=== PATIENT | male | born 1945 | race Caucasian/White ===

== ENCOUNTER → 2017-02-17 | Day surgery (SDC) | payer MEDICARE ==
[~2017-02-17] MED LIST: ACETAMINOPHEN 1000 MG/100 ML 100 ML IV ONE; AMLO10TA2 PO; HYDR-4107 PO; KETOROLAC TROMETHAMINE 30 MG/ML (IVP) VIAL IV PUSH ONE; LACTATED RINGER'S 1000 ML INJ 1,000 ML ONE; MIDAZOLAM HCL 2 MG/2 ML VIAL ONE; ONDANSETRON HCL 4 MG/2 ML VIAL IV PUSH ONE; PROPOFOL 200 MG/20 ML AMP IV ONE; ceFAZolin INJ 1,000 MG VIAL ONE; ePHEDrine/NS 50 MG/5 ML SYR IV ONE
--- NOTE | 2017-02-17 11:54 | MP ---
cc: WOOD LOPEZ M.D., JOSE R. M.D. DATE OF SURGERY 02/17/2017 PROCEDURE 1. Laparoscopic right inguinal hernia repair with mesh. 2. Primary umbilical hernia repair. PREOPERATIVE DIAGNOSIS 1. Symptomatic reducible right inguinal hernia. 2. Reducible umbilical hernia. POSTOPERATIVE DIAGNOSIS 1. Symptomatic reducible right inguinal hernia. 2. Reducible umbilical hernia. ANESTHESIA General endotracheal SURGEON Wood Lopez MD ESTIMATED BLOOD LOSS 10 mL FLUIDS 1000 mL crystalloid COMPLICATIONS None DRAINS None SPECIMEN None PROCEDURE IN DETAIL The patient was seen in the holding area and the right groin marked by the undersigned and confirmed by the patient. He was taken to the operating room and placed on the operating room table in the supine position. After an adequate level of general anesthetic had been administered, the lower abdomen and groin were shaved, prepped and draped. Time-out was taken confirming the correct patient site and procedure to be performed. Skin and subcutaneous tissue were infiltrated with local anesthetic in the umbilicus and an incision made through the skin. The peritoneal cavity was directly visualized. There was no incarceration or omental tissue adhered to the umbilicus. A 12 mm balloon trocar was inserted and the balloon inflated. The abdomen was insufflated. The patient was placed in Trendelenburg position. A 12-mm trocar was placed in the right lower quadrant and a 5 mm trocar in the left lower quadrant after injection of each site with local anesthetic. Local anesthetic was also injected into the right groin. The peritoneum was then incised and peeled downward on the right side. A window was created behind the spermatic cord structures. Angel's ligament was dissected free from the surrounding structures. Fatty tissue was dissected off of the anterior abdominal wall. A 6 x 6 piece of Ultrapro mesh was brought up and trimmed to size to fit the defect. The mesh was slit longitudinally and inserted into the pelvis. The inferior leaf of the mesh was brought under the spermatic cord structures. The mesh was transfixed to Angel's ligament with 4.0 mm elisabeth. The mesh was then transfixed to the transversalis fascia with 4.8 mm elisabeth. The mesh was reclosed laterally with two 4.8 mm elisabeth and medially with a 4.8 mm staple to create a new internal ring. When this was completed, the defect was tested and the entire defect was seen to be encompassed by at least 4-5 cm of mesh material overlapping the edge of the defect. Insufflation was decreased and the peritoneum was reclosed with 4.8 mm elisabeth. Insufflation was then discontinued and the 12th and 5 mm trocars were removed under direct vision. No bleeding was noted from the trocar sites. The laparoscope and umbilical port were then removed. The fascia was closed in the right lower quadrant with 0 Vicryl suture and the umbilicus was closed with #1 Prolene in an interrupted simple fashion longitudinally. The three trocar sites were closed in the skin with 4-0 Vicryl in an interrupted buried fashion. All sites were dressed with Steri-Strips. The patient was extubated and taken back to the recovery room in stable condition. He tolerated the procedure well. MD SARATH Parrish/[place] /11:32 AM /11:44 AM MTDCarla
== END | disposition home or self-care (01) ==
LOC: ESDC 08:12
PROVIDERS: ATTEND Surgery Trauma Surgery
DX: K40.90 Unilateral inguinal hernia, without obstruction or gangrene, not specified as recurrent (principal); K42.9 Umbilical hernia without obstruction or gangrene
CPT/HCPCS: 00750; 00840; 49585; 49650; C1781; J0131; J0690; J1885; J2250; J2405; J3010; J7120

== ENCOUNTER 2017-02-19 01:49 | Emergency (ER) | payer MEDICARE ==
[~2017-02-19] VITALS: Ht 167.6 cm; Wt 78.1 kg
[2017-02-19 01:50] VITALS: BP 168/93; PULSE 81; RESP 16; TEMP 98.7; O2SAT 96
[2017-02-19] MEDS ORDERED: HYDR-4107 PO (02:00)
[2017-02-19] MEDS ORDERED: AMLO10TA2 PO (02:00)
--- NOTE | 2017-02-19 02:12 | PD ---
HPI Chief Complaint: Complaint Time Seen by Provider: 02:07 Travel History International Travel<30 days: No Contact w/Intl Traveler<30days: No Traveled to known affect area: No History of Present Illness HPI 71-year-old male presents to the emergency department by private transportation the care of his spouse for complaint of difficulty with urination. Patient underwent elective right inguinal herniorrhaphy and umbilical herniorrhaphy today (02/18/17) at [facility]. Patient reports at time of discharge from the outpatient surgical facility he was having difficulty urinating but was able to produce a stream. Patient reports since that time he has frequent attempts at urination but only putting out small amounts. Patient did urinate onto a pad as overflow type urination all he was sleeping and presents now because of ongoing suprapubic distention and pain and inability to urinate. Patient denies fever or chills. Patient's had no nausea or vomiting. No report of flank pain. No penile discharge. No previous issues with urinary retention and no prior urinary catheter. [facility] Past Medical History Narrative Medical Hypertension Inguinal herniorrhaphy umbilical herniorrhaphy; nursing notes reviewed Social History Tobacco Use: No Allergies-Medications (Allergen,Severity, Reaction): Coded Allergies: azithromycin (Verified Allergy, Severe, Fatigue, 02/19/17) Sulfa (Sulfonamide Antibiotics) (Verified Allergy, Unknown, 02/19/17) Reported Meds & Prescriptions Reported Meds & Active Scripts Active Reported Hydrocodone-Acetaminophen 5-300 Mg Tab 1 Tab PO Q6H PRN Amlodipine (Amlodipine Besylate) 10 Mg Tab 10 Mg PO DAILY Review of Systems Except as stated in HPI: all other systems reviewed are Neg General / Constitutional: No: Fever, Chills HENT: No: Congestion Cardiovascular: No: Chest Pain or Discomfort Respiratory: No: Shortness of Breath Gastrointestinal: No: Abdominal Pain Genitourinary: Positive: Decreased Urinary Output, Dribbling, Incontinence Musculoskeletal: No: Myalgias, Arthralgias Skin: No Rash, No Itching Neurologic: No: Weakness, Dizziness, Syncope Psychiatric: No: Anxiety Endocrine: No: Heat Intolerance, Cold Intolerance Hematologic/Lymphatic: No: Easy Bruising Physical Exam Narrative GENERAL: Well-developed well-nourished female in no acute distress no respiratory distress SKIN: Warm and dry. HEAD: Normocephalic. EYES: No scleral icterus. No injection or drainage. NECK: Supple, trachea midline. No JVD or lymphadenopathy. CARDIOVASCULAR: Regular rate and rhythm without murmurs, gallops, or rubs. RESPIRATORY: Breath sounds equal bilaterally. No accessory muscle use. GASTROINTESTINAL: Abdomen soft, mild tenderness to palpation with Steri-Strips in place and no drainage or induration or erythema at the incision sites, noted suprapubic distention. MUSCULOSKELETAL: No cyanosis, or edema. BACK: Nontender without obvious deformity. No CVA tenderness. Data Data Last Documented VS Vital Signs Date Time Temp Pulse Resp B/P (MAP) Pulse Ox O2 Delivery O2 Flow Rate FiO2 02/19/17 02:44 69 18 149/76 (100) 95 Room Air 02/19/17 01:50 98.7 Orders Orders Urinary Catheter Insert/Apply (02/19/17 02:07) Urinalysis - C+S If Indicated (02/19/17 02:07) Lidocaine 2% Jelly (Xylocaine 2% Jelly) (02/19/17 02:15) Bag, Leg 32oz Sterile Large Ea (02/19/17 02:49) Ed Discharge Order (02/19/17 02:49) Labs Laboratory Tests Test 02/19/17 02:35 Urine Color STRAW Urine Turbidity CLEAR Urine pH 7.0 Urine Specific [place] 1.009 Urine Protein NEG mg/dL Urine Glucose (UA) NEG mg/dL Urine Ketones NEG mg/dL Urine Occult Blood MOD Urine Nitrite NEG Urine Bilirubin NEG Urine Leukocyte Esterase NEG Urine RBC 10-14 /hpf Urine WBC 0-2 /hpf Urine Squamous Epithelial Cells 0-5 /hpf Urine Bacteria NONE /hpf Microscopic Urinalysis Comment CULT NOT INDICATED MDM Medical Decision Making Medical Screen Exam Complete: Yes Emergency Medical Condition: Yes Medical Record Reviewed: Yes Interpretation(s) UA: rbc's cx not indicated Differential Diagnosis urinary retention, BPH, adverse anesthetic reaction, UTI Narrative Course Bladder scan 900+ mL volume; urinary catheter insertion ordered; urinalysis request Urinary catheter inserted with good urine output 1 L; catheter is clamped; urinalysis sent for evaluation Patient clinically improved after urinary catheter placement and drainage of retained urine; urinalysis few RBCs but otherwise unremarkable culture is not indicated Diagnosis Primary Impression: Urinary retention Patient Instructions: Narcotic given in the ED, General Instructions Additional Instructions: Increase fluid hydration Continue current medications as presently prescribed Follow-up with your managing provider Return to the emergency department for a concerns or change in condition Disposition: 01 DISCHARGE HOME Condition: Stable Adela Mendez MD Feb 19, 2017 02:12
[2017-02-19] MEDS ORDERED: LIDOCAINE HCL 2% JELLY 5 ML SYRINGE TOPICAL ONE (02:15)
[2017-02-19 02:39] LABS: BLOOD, URINE MOD (NEG); GLUCOSE,URINE NEG (NEG); KETONE, URINE NEG (NEG); NITRITE,URINE NEG (NEG); URINE COLOR STRAW (YELLW/STRAW)
[2017-02-19 02:43] LABS: WBC, URINE 0-2 /hpf (0-5)
[2017-02-19 02:44] VITALS: BP 149/76; PULSE 69; RESP 18; O2SAT 95
[2017-02-19 02:44] LABS: COMMENT (UR) CULT NOT INDICATED; CULTURE IF INDICATED CULT NOT INDICATED; SQUAMOUS EPITHELIAL CELL URINE 0-5 /hpf (0-5)
[2017-02-19 03:19] VITALS: BP 140/74
== END 2017-02-19 03:35 | disposition home or self-care (01) ==
LOC: PHED 01:49
DX: R33.9 Retention of urine, unspecified (principal)
CPT/HCPCS: 51702; 81001

== ENCOUNTER 2017-03-03 16:04 | Emergency (ER) | payer MEDICARE ==
[~2017-03-03] VITALS: Ht 167.6 cm; Wt 72.0 kg
[~2017-03-03 16:04] MED LIST changes: -ACETAMINOPHEN 1000 MG/100 ML 100 ML IV ONE; -KETOROLAC TROMETHAMINE 30 MG/ML (IVP) VIAL IV PUSH ONE; -LACTATED RINGER'S 1000 ML INJ 1,000 ML ONE; -MIDAZOLAM HCL 2 MG/2 ML VIAL ONE; -ONDANSETRON HCL 4 MG/2 ML VIAL IV PUSH ONE; -PROPOFOL 200 MG/20 ML AMP IV ONE; -ceFAZolin INJ 1,000 MG VIAL ONE; -ePHEDrine/NS 50 MG/5 ML SYR IV ONE
[2017-03-03 16:07] VITALS: BP 136/69; PULSE 103; RESP 16; TEMP 98.3; O2SAT 97
--- NOTE | 2017-03-03 16:51 | PD ---
HPI Chief Complaint: Complaint Time Seen by Provider: 16:48 Travel History International Travel<30 days: No Contact w/Intl Traveler<30days: No Traveled to known affect area: No History of Present Illness HPI 71-year-old male complains of urinary retention and bladder spasm. Patient status post right inguinal hernia surgery and umbilical hernia surgery on February 18, 2017. Patient developed urinary retention subsequently. Patient was seen in emergency room and Valdez catheter was inserted. Patient produced 1000 cc of urine at that time. UA was negative. Patient was advised to follow- up with local physician. Patient was seen by Dr. Farrell, local urologist and the Valdez catheter was removed. Patient has been doing self catheter At home. Patient states that he has trouble inserting the Valdez catheter for the past several days. Patient also complains of bladder spasm for the past few days. Patient denies any fever chills. Patient denies any back pain. Patient denies any nausea vomiting diarrhea. PFSH Past Medical History Hypertension: Yes Medical other: Yes (SELF CATHS) Tetanus Vaccination: Unknown Influenza Vaccination: No (UNKNOWN) Past Surgical History Surgical History: No Previous Surgery Social History Alcohol Use: Yes (RARE) Tobacco Use: No Substance Use: No Allergies-Medications (Allergen,Severity, Reaction): Coded Allergies: azithromycin (Verified Allergy, Severe, Fatigue, 03/03/17) erythromycin base (Verified Allergy, Severe, 03/03/17) Sulfa (Sulfonamide Antibiotics) (Verified Allergy, Unknown, 03/03/17) Reported Meds & Prescriptions Reported Meds & Active Scripts Active Reported Hydrocodone-Acetaminophen 5-300 Mg Tab 1 Tab PO Q6H PRN Amlodipine (Amlodipine Besylate) 10 Mg Tab 10 Mg PO DAILY Review of Systems General / Constitutional: No: Fever Eyes: No: Visual changes HENT: No: Headaches Cardiovascular: No: Chest Pain or Discomfort Respiratory: No: Shortness of Breath Gastrointestinal: No: Abdominal Pain Genitourinary: Positive: Decreased Urinary Output, Pelvic Pain, No: Dysuria Musculoskeletal: No: Pain Skin: No Rash Neurologic: No: Weakness Psychiatric: No: Depression Endocrine: No: Polydipsia Hematologic/Lymphatic: No: Easy Bruising Physical Exam Narrative GENERAL: Well-nourished, well-developed patient. SKIN: Focused skin assessment warm/dry. HEAD: Normocephalic. EYES: No scleral icterus. No injection or drainage. NECK: Supple, trachea midline. No JVD or lymphadenopathy. CARDIOVASCULAR: Regular rate and rhythm without murmurs, gallops, or rubs. RESPIRATORY: Breath sounds equal bilaterally. No accessory muscle use. GASTROINTESTINAL: Abdomen soft, non-tender, nondistended. MUSCULOSKELETAL: No cyanosis, or edema. BACK: Nontender without obvious deformity. No CVA tenderness. exam: No tenderness on palpation of the testicle or the penis. No discharge noted. Data Data Last Documented VS Vital Signs Date Time Temp Pulse Resp B/P (MAP) Pulse Ox O2 Delivery O2 Flow Rate FiO2 03/03/17 16:07 98.3 103 16 136/69 (91) 97 Orders Orders Urinalysis - C+S If Indicated (03/03/17 16:49) Urinary Catheter Insert/Apply (03/03/17 16:49) Urine Culture (03/03/17 16:55) Morphine Inj (Morphine Inj) (03/03/17 17:30) Ondansetron Odt (Zofran Odt) (03/03/17 17:30) Levofloxacin (Levaquin) (03/03/17 17:30) Labs Laboratory Tests Test 03/03/17 16:55 Urine Collection Type CATH Urine Color NANCY Urine Turbidity MARKED Urine pH 5.5 Urine Specific [place] 1.027 Urine Protein 300 OR GREATER mg/dL Urine Glucose (UA) NEG mg/dL Urine Ketones 15 mg/dL Urine Occult Blood LARGE Urine Nitrite NEG Urine Bilirubin NEG Urine Leukocyte Esterase NEG Urine RBC INNUM /hpf Urine WBC 25-49 /hpf Urine Squamous Epithelial Cells 6-8 /hpf Urine Yeast (Budding) MANY Microscopic Urinalysis Comment CULTURE INDICATED Urine Collection Time 16:55 [facility] Medical Decision Making Medical Screen Exam Complete: Yes Emergency Medical Condition: Yes Interpretation(s) 1731 PM. UA positive for RBC, WBC. Differential Diagnosis Differential diagnosis including UTI, urethritis, bladder spasm, urinary retention. Narrative Course 71-year-old male with urinary bladder spasm and urinary retention. Valdez catheter inserted. Patient had reddish urine produced. Morphine 2 mg IM. Zofran 4 mg ODT. Levaquin 750 mg by mouth. Diagnosis Primary Impression: Prostatitis Qualified Codes: N41.0 - Acute prostatitis Patient Instructions: General Instructions Additional Instructions: Take medications as directed. Follow-up with urologist in a.m. as scheduled. Return if worse. Med/Other Pt SpecificInfo: Prescription(s) given Scripts Hydrocodone-Acetaminophen ([place]) 5 Mg-325 Mg Tab 1 TAB PO Q6H Y for PAIN, #20 TAB 0 Refills Prov: Lenard Almazan MD 03/03/17 Ciprofloxacin (Cipro) 500 Mg Tab 500 MG PO BID for Infection, #28 TAB 0 Refills Prov: Lenard Almazan MD 03/03/17 Disposition: 01 DISCHARGE HOME Condition: Stable Lenard Almazan MD Mar 03, 2017 16:51
[2017-03-03 17:08] LABS: BILIRUBIN, URINE NEG (NEG); BLOOD, URINE LARGE (NEG); GLUCOSE,URINE NEG (NEG); KETONE, URINE 15 mg/dL (NEG); NITRITE,URINE NEG (NEG); PH, URINE 5.5 (5.0-8.5); URINE LEUKOCYTE ESTERASE NEG (NEG)
[2017-03-03 17:10] LABS: URINE COLOR AMBER (YELLW/STRAW)
[2017-03-03 17:11] LABS: RBC, URINE INNUM /hpf (0-3)
[2017-03-03] MEDS ORDERED: LEVOFLOXACIN 750 MG TAB PO ONE (17:30)
[2017-03-03] MEDS ORDERED: ONDANSETRON ODT 4 MG TAB PO ONE (17:30)
[2017-03-03] MEDS ORDERED: MORPHINE SULFATE 2 MG/ML INJ IM ONE (17:30)
[2017-03-03] MEDS ORDERED: NORC5TAB PO (17:34)
[2017-03-03] MEDS ORDERED: CIPR-9 PO (17:34)
[2017-03-03 18:09] VITALS: BP 138/83; PULSE 77; RESP 18; TEMP 98.9; O2SAT 99
== END 2017-03-03 18:41 | disposition home or self-care (01) ==
LOC: PHED 16:04
DX: N41.0 Acute prostatitis (principal); I10 Essential (primary) hypertension; N39.0 Urinary tract infection, site not specified; B96.89 Other specified bacterial agents as the cause of diseases classified elsewhere
CPT/HCPCS: 51702; 81001; 87077; 87086; 87186; 96372; 99284; J2270